=== PATIENT | male | born 1970 | race Asian ===

== ENCOUNTER 2021-05-28 15:50 | Emergency (ER) | payer OTHER, SELFPAY ==
[2021-05-28 15:53] VITALS: BP 141/102; PULSE 118; RESP 16; TEMP 36.5; O2SAT 98
--- NOTE | 2021-05-28 15:58 | PC.NURSE ---
Dr Bass in triage to assess patient.
--- NOTE | 2021-05-28 16:17 | ED.NEUROSD ---
HPI - Neuro Symptoms/Deficit General Chief Complaint: Neuro Symptoms/Deficit Stated Complaint: right side facial numbness Time Seen by Provider: 05/28/21 16:10 Source: patient History of Present Illness HPI Narrative: Patient presents with right-sided facial weakness reports that symptoms for the past couple days he was with family today they noticed facial asymmetry and wanted him to see a physician. He went to his clinic however his physician was not available and the staff there sent him to the ER for further evaluation. Reports the right side of his face feels weak he denies any numbness time my evaluation denies any numbness or weakness in his extremities denies any headaches denies any recent cough or congestion Related Data Allergies Allergy/AdvReac Type Severity Reaction Status Date / Time No Known Allergies Allergy Unverified 07/24/19 14:54 Review of Systems Review of Systems: CONSTITUTIONAL: Denies fever, chills, or sweats. EYES: Denies visual changes, redness, or discharge. ENT: Denies rhinorrhea, congestion, sore throat, or otalgia. CARDIOVASCULAR: Denies chest pain, palpitations, or edema. RESPIRATORY: Denies cough or dyspnea. GASTROINTESTINAL: Denies abdominal pain, nausea, vomiting, or diarrhea. GENITOURINARY: Denies dysuria or hematuria. SKIN: Denies rash or itching. MUSCULOSKELETAL: Denies back pain, joint pain, or myalgia. NEUROLOGIC: Denies headache, numbness, dizziness, or weakness. PSYCHIATRIC: Denies anxiety or depression. All systems reviewed & are unremarkable except as noted in HPI and below PMFSH Past Medical History Medical History Erythrocytosis Surgical History Surgical History Hx of appendectomy Family History Family History Mother Hypertension Father Hypertension Esophagus cancer Social History Social History Smoking status: Former smoker Smoking end date: 06/21/93 Alcohol intake: current Exam Narrative: GENERAL: Well-appearing, well-nourished, and in no acute distress. HEAD: Normocephalic, atraumatic. EYES: PERRLA and EOMI. ENT: Nares clear, no rhinorrhea or epistaxis. Mucous membranes moist. NECK: Supple. No masses. No JVD EXTREMITIES: Normal range of motion. No edema. SKIN: Warm, dry, no rash. NEURO: Cranial nerves VII palsy on the right noted forehead was included. remainder of the cranial nerves are intact, patient has 5 out of 5 strength in all extremities sensation intact to light touch in all extremities alert and oriented x3. PSYCH: Normal mood and affect. Course Vital Signs Vital signs: Vital Signs Temperature 36.5 C 05/28/21 15:53 Pulse Rate 118 H 05/28/21 15:53 Respiratory Rate 16 05/28/21 15:53 Blood Pressure 141/102 H 05/28/21 15:53 Pulse Oximetry 98 05/28/21 15:53 Temperature 36.5 C 05/28/21 15:53 Pulse Rate 118 H 05/28/21 15:53 Respiratory Rate 16 05/28/21 15:53 Blood Pressure 141/102 H 05/28/21 15:53 Pulse Oximetry 98 05/28/21 15:53 MDM - Neuro Symptoms/Deficit MDM Narrative Medical decision making narrative: H&P as above, vss, pt looks clinically well, exam with isolated cranial nerve VII palsy, labs/img considered, symptomatic relief available as needed, on reevaluation pt continues to looks clinically well. Suspect Dhillon's palsy, dns CVA, mass, intracranial hemorrhage. plan to tx/monitor as op w/ pcm f/u findings/plan discussed with pt, pt agree/comfortable with plan, return precautions given Discharge Plan Discharge Clinical Impression: Dhillon's palsy Patient Disposition: Home, Self-Care Condition: Improved Instructions: Antibiotic Form, Dhillon Palsy (ED) Additional Instructions: Please return if your symptoms worsen or fail to improve. If you develop a fever, can not eat/drink anyth
== END 2021-05-28 16:56 | disposition home or self-care (01) ==
PROVIDERS: Emergency Provider Emergency Medicine; PCP Internal Medicine
DX: G51.0 Bell's palsy (principal); Z87.891 Personal history of nicotine dependence
CPT/HCPCS: 99283

== ENCOUNTER 2021-09-26 00:39 | Day surgery (SDC) | payer OTHER, SELFPAY ==
[2021-09-19 16:02] VITALS: BMI 19.0
[2021-09-26 08:09] VITALS: BP 127/91; PULSE 82; RESP 17; TEMP 36.4; O2SAT 99; BMI 21.5
[2021-09-26] MEDS: LACTATED RINGERS 1,000 ML 150 ML IV CONT (08:15)
--- NOTE | 2021-09-26 08:23 | PM.HPGS ---
History of Present Illness History of Present Illness Consent: Risks, benefits, and alternatives have been discussed and questions answered. Patient agrees to proceed with procedure. Chief complaint: neoplasm screening Narrative: Demond Nettles is a 51 year old male Referred for colon cancer screening. Review of Systems Review of Systems: All systems reviewed & are unremarkable except as noted in HPI and below PMFSH Past Medical History Medical History Erythrocytosis Hyperlipidemia Surgical History Surgical History Hx of appendectomy Family History Family History Mother Hypertension Father Hypertension Esophagus cancer Social History Social History Smoking status: Never smoker Smoking end date: 06/21/93 Alcohol intake: current Drinks per week: 5 Living arrangements: with family Spiritual care concerns: No Meds Home Medications and Allergies Home Medications Medication Instructions Recorded Confirmed Type No Home Medications 07/31/21 09/26/21 History Allergies Allergy/AdvReac Type Severity Reaction Status Date / Time No Known Allergies Allergy Verified 09/26/21 08:08 Vital Signs Vital Signs - 24 hr 09/26/21 08:09 Temperature 36.4 C Pulse Rate 82 Respiratory Rate 17 Blood Pressure 127/91 H Pulse Oximetry 99 Exam Resp: Auscultation: clear to auscultation bilaterally Cardio: Rate: regular rate Rhythm: regular rhythm GI: GI Palp: Yes Soft to palpation and No Tenderness to palpation present (GI) Assessment and Plan Assessment and plan (1) Colon cancer screening: Code(s): Z12.11 - Encounter for screening for malignant neoplasm of colon Status: Acute Assessment and Plan: Colonoscopy with possible biopsy or polypectomy or cautery or injection of substances.
--- NOTE | 2021-09-26 08:53 | WPDANESEPPF ---
Anes - Initial Pre Proc Eval Procedure: Operation Date: 09/26/21 09:30 Proposed Procedures p Screening Colonoscopy - Simon Roth MD Date/Time: 09/26/21 08:53 Surgeon: Simon Roth MD Pre Op Diagnosis: neoplasm screening Patient Data Age: 51 Gender: M Height: 1.7 m Weight: 62.5 kg Last Vital Signs Temp 36.4 C 09/26/21 08:09 Pulse 82 09/26/21 08:09 Resp 17 09/26/21 08:09 BP 127/91 H 09/26/21 08:09 Pulse Ox 99 09/26/21 08:09 Allergies Allergy/AdvReac Type Severity Reaction Status Date / Time No Known Allergies Allergy Verified 09/26/21 08:08 Home Medications Medication Instructions Recorded Confirmed Type No Home Medications 07/31/21 09/26/21 History Patient hx anesthesia problems: none Family hx anesthesia problems: none Results Review: All pre-operative results and documents have been reviewed as part of the pre-operative evaluation. PMFSH Past Medical History Medical History Erythrocytosis Hyperlipidemia Surgical History Surgical History Hx of appendectomy Family History Family History Mother Hypertension Father Hypertension Esophagus cancer Social History Social History Smoking status: Never smoker Smoking end date: 06/21/93 Alcohol intake: current Drinks per week: 5 Living arrangements: with family Spiritual care concerns: No Anes - Eval Final PreProcedure Day of Procedure 09/26/21 08:53 Patient weight: normal Heart: regular rate and rhythm Lungs: clear to auscultation Airway: Mallampati scale class III and special considerations poor opening Neurological: alert and oriented Last oral intake: >/= 8 hours ASA classification: II Emergent: no Anesthetic plan: proceed Anesthesia type and monitoring: general GIVS and standard monitoring Results Review: All pre-operative results and documents have been reviewed as part of the pre-operative evaluation. Informed Consent: The patient's anesthetic plan and its attendant risks and benefits were discussed with the patient/family/POA. Questions were solicited and answers provided to the satisfaction of the patient/family/POA.
[2021-09-26 09:40] VITALS: BP 90/64; PULSE 81; RESP 20; O2SAT 97
[2021-09-26 09:50] VITALS: BP 89/61; PULSE 76; RESP 14; O2SAT 98
[2021-09-26 10:00] VITALS: BP 130/91; PULSE 69; RESP 16; O2SAT 100
== END 2021-09-26 10:29 | disposition home or self-care (01) ==
PROVIDERS: PCP Internal Medicine; Visit Provider Internal Medicine Gastroenterology
PROC: 0DJD8ZZ Inspection of Lower Intestinal Tract, Via Natural or Artificial Opening Endoscopic (ICD-10-PCS; CPT 45378; principal; 2021-09-26 09:30)
DX: Z12.11 Encounter for screening for malignant neoplasm of colon (principal)
CPT/HCPCS: 45378; J2001; J2704; J7120

== ENCOUNTER 2022-06-05 09:01 | Outpatient (CLI) | payer OTHER, SELFPAY ==
[2022-06-05 19:18] LABS: Cholesterol 228 mg/dL (0-200); HDL Direct 54 mg/dL; Triglycerides 85 mg/dL (<150)
[2022-06-05 19:29] LABS: LDL Cholesterol Direct 132 mg/dL
== END 2022-06-05 09:02 | disposition home or self-care (01) ==
LOC: ANHGOSHLAB 09:04
PROVIDERS: PCP Internal Medicine; Visit Provider Internal Medicine
DX: E78.5 Hyperlipidemia, unspecified (principal)
CPT/HCPCS: 36415; 80061

== ENCOUNTER 2023-01-26 09:53 | Outpatient (CLI) | payer OTHER, SELFPAY ==
[2023-01-26 10:24] LABS: Kit Draw Collected
== END 2023-01-26 09:54 | disposition home or self-care (01) ==
LOC: ANHGOSHLAB 09:55
PROVIDERS: PCP Internal Medicine; Visit Provider Clinical Nurse Specialist
DX: D75.1 Secondary polycythemia (principal); E78.5 Hyperlipidemia, unspecified; Z12.5 Encounter for screening for malignant neoplasm of prostate
CPT/HCPCS: 36415

== ENCOUNTER 2023-04-09 10:22 | Outpatient (CLI) | payer OTHER, SELFPAY ==
[2023-04-09 15:53] LABS: Prostate Specific Antigen 0.8 ng/mL (< OR = 4.0)
== END 2023-04-09 10:23 | disposition home or self-care (01) ==
LOC: ANHGOSHLAB 10:23
PROVIDERS: PCP Internal Medicine; Visit Provider Clinical Nurse Specialist
DX: R97.20 Elevated prostate specific antigen [PSA] (principal)
CPT/HCPCS: 36415; 84153